=== PATIENT | female | born 1995 | race Caucasian/White ===

== ENCOUNTER 2021-05-29 22:52 | Emergency (ER) | payer BC ==
--- NOTE | 2021-05-30 00:35 | EDM.PDOC ---
ED HPI GENERAL MEDICAL PROBLEM - General Chief Complaint: Neurological Problem Stated Complaint: FAINTED AND FELL DOWN STAIRS/HIT HEAD Time Seen by Provider: 05/30/21 00:12 Source of Information: Reports: Patient, Significant Other (Boyfriend) History Limitations: Reports: No Limitations - History of Present Illness INITIAL COMMENTS - FREE TEXT/NARRATIVE: Ms. Rodriguez is a very pleasant 26-year-old woman who now presents to the ED after suffering a syncopal episode while standing at the top of some steps, falling down 6 steps, striking the back of her head and neck, around 22:30 last night, , 05/29/2021. She acknowledges that she was standing at the top of the stairs for about 20 minutes before she blacked out. She is complaining of a headache on and off, plus pain to the back of her neck. No prior syncopal episodes. Because of her complaint of neck pain, with the finding of tenderness, a cervical collar was placed. At triage, the patient was found to be hemodynamically stable, afebrile, saturating 99% on room air. She appears to be comfortable, in no acute distress. Prior to last night's event, the patient denies having a recent fever, chills, sore throat, ear pain, nasal or sinus congestion, cough, dyspnea, chest pain, palpitations, nausea, vomiting, constipation, diarrhea, abdominal pain, urinary symptoms, recent weight gain or weight loss, recent bloody bowel movements or black bowel movements, recent joint aches, headaches, or rashes. The patient does not have a PCP. Her Staff Radiation Therapist is Dr. Sada Rodriguez, at [facility]. She has received 2 Moderna COVID vaccinations, although no influenza vaccination this season. Neck Pain Score (Numeric/FACES): 3 - Related Data Allergies Allergy/AdvReac Type Severity Reaction Status Date / Time No Known Allergies Allergy Verified 05/29/21 23:07 Home Meds: Home Meds . 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 - Physical Exam Exam: See Below Exam Limited By: No Limitations General Appearance: Alert, WD/WN, No Apparent Distress Eye Exam: Bilateral Eye: EOMI, Normal Inspection, PERRL Ears: Normal External Exam, Normal Canal, Hearing Grossly Normal, Normal TMs Nose: Normal Inspection, Normal Mucosa, No Blood Throat/Mouth: Normal Inspection, Normal Lips, Normal Teeth, Normal Gums, Normal Oropharynx, Normal Voice, No Airway Compromise Head Exam: Atraumatic, Normocephalic Neck: Limited Range of Motion (due to pain), Tender Midline (mid-cervical spine) Respiratory/Chest: No Respiratory Distress, Lungs Clear, Normal Breath Sounds, No Accessory Muscle Use Cardiovascular: Normal Peripheral Pulses, Regular Rate, Rhythm, No Edema, No Gallop, No JVD, No Murmur, No Rub GI/Abdominal: Normal Bowel Sounds, Soft, Non-Tender, No Organomegaly, No Distention, No Abnormal Bruit, No Mass Neuro Exam (Abbreviated): Alert, Oriented, CN II-XII Intact, Normal Cognition, No Motor/Sensory Deficits Back Exam: Normal Inspection, Full Range of Motion, NT Extremities: Normal Inspection, Normal Range of Motion, No Pedal Edema, Normal Capillary Refill Psychiatric: Normal Affect Skin Exam: Warm, Dry, Intact, Normal Color, No Rash Course - Vital Signs Last Recorded V/S: Last Vital Signs Temp 36.4 C 05/29/21 23:05 Pulse 84 05/29/21 23:05 Resp 15 05/29/21 23:05 BP 120/82 05/29/21 23:05 Pulse Ox 99 05/29/21 23:05 Orthostatic Blood Pressure [ 129/96 Standing] Orthostatic Blood Pressure [ 126/97 Sitting] Orthostatic Blood Pressure [ 124/74 Supine] - Orders/Labs/Meds Labs: Laboratory Tests 05/30/21 05/30/21 05/30/21 Range/Units 00:48 00:57 00:57 Hgb 12.8 (11.2-15.7) gm/dl Hct 37.6 (34.1-44.9) % Sodium 141 (136-145) mEq/L Potassium 4.0 (3.5-5.1) mEq/L Chloride 103 (98-107) mEq/L Carbon Dioxide 26 (21-32) mEq/L Anion Gap 16.0 H (5-15) BUN 16 (7-18) mg/dL Creatinine 0.6 (0.55-1.02) mg/dL Est Cr Clr Drug Dosing 113.36 mL/min Estimated GFR (MDRD) > 60 (>60) mL/min BUN/Creatinine Ratio 26.7 H (14-18) Glucose 84 (70-99) mg/dL Calcium 8.8 (8.5-10.1) mg/dL Urine HCG, Qual Negative (NEGATIVE) - Re-Assessments/Exams Free Text/Narrative Re-Assessment/Exam: 05/30/21 00:33 The patient's neurologic examination is completely normal, there is no suggestion of a basal skull fracture, she has not suffered a posttraumatic seizure, no loss of consciousness since her injury, and she is not on an anticoagulant, therefore she does not meet current criterion for a CT of the head, however, she has pain to her neck with point tenderness to her mid- cervical spine, therefore I have ordered a CT of the cervical spine to evaluate for fracture. A cervical collar will be placed. Once she returns from CT, we will check orthostatics, some blood work, and a urine test. 05/30/21 01:19 The patient is not orthostatic. 05/30/21 01:58 CT of the cervical spine is read by Bj as "No acute osseous abnormality of the cervical spine." The patient's H/H is within normal limits at 12.8/37.6. Her BMP is unremarkable. Her urine test is negative. 05/30/21 02:07 Test results discussed with the patient and her boyfriend. As above, today's work-up was unremarkable. I removed the cervical collar, and patient feels much better about that. It is most likely that the patient passed out because of standing too long in one place, pooling blood in her lower extremities, and decreasing her cardiac output. Since she does not appear to be dehydrated or intravascularly depleted, she does not need to be aggressive with fluids, or change anything else about her activities - she may resume her usual activities. Departure - Departure Time of Disposition: 02:09 Disposition: Home, Self-Care 01 Condition: Good Clinical Impression: Syncope, Fall at home, Neck strain - Discharge Information *PRESCRIPTION DRUG MONITORING PROGRAM REVIEWED*: Not Applicable *COPY OF PRESCRIPTION DRUG MONITORING REPORT IN PATIENT JOHANNY: Not Applicable Instructions: Syncope, [id number] Referrals: PCP,None [Primary Care Provider] - Sada Rodriguez MD [Ordering Only Provider] - Forms: ED Department Discharge Additional Instructions: You were seen in the emergency room after passing out and falling down some steps, striking the back of your head and neck. Work-up in the ER included positional blood pressure checks, some blood test, a urine test, and a CT of your cervical spine. Your entire work-up was unremarkable. You are not intravascularly depleted. You are not anemic. No electrolyte abnormalities were found. Your urine test was negative. No injury was found on your CT scan. Based on your history, physical exam, and ER tests, you most likely passed out because of standing too long in one place, pooling blood in your lower extremities and decreasing her cardiac output. Because you are not dehydrated, no change need to be made in how much fluid drink. You may resume your usual activities. We recommend that you take [id number] ibuprofen as needed for discomfort. If any other problems, please do not hesitate to return to the ER. Sepsis Event Note (ED) - Focused Exam Vital Signs: Vital Signs Temp Pulse Resp BP Pulse Ox 05/29/21 23:05 36.4 C 84 15 120/82 99
--- NOTE | 2021-05-30 07:38 | CT ---
CT cervical spine Technique: Multiple axial sections were obtained from both C1 inferiorly to the top of T4. Reconstructed coronal and sagittal images were obtained. Comparison: No prior cervical spine imaging is available. Findings: Vertebral body heights and disc spaces are maintained. Incidental note of fusion between the spinous process of T4 and T5. Vertebral body heights are maintained. No central canal stenosis or neural foraminal stenosis are seen. Visualized lung apices are clear. No fracture or subluxation is seen. Slight scoliosis is noted. Impression: 1. No acute abnormality is identified on CT study of the cervical spine. 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
== END 2021-05-30 02:23 | disposition home or self-care (01) ==
LOC: JD.ED 22:52
DX: S16.1XXA Strain of muscle, fascia and tendon at neck level, initial encounter (principal); R55 Syncope and collapse; W10.8XXA Fall (on) (from) other stairs and steps, initial encounter; Y92.009 Unspecified place in unspecified non-institutional (private) residence as the place of occurrence of the external cause
CPT/HCPCS: 36415; 72125; 72125-26; 80048; 81025; 85014; 85018; 99284-25